=== PATIENT | male | born 1950 | race Caucasian/White ===

== ENCOUNTER 2023-09-14 14:03 | Inpatient (IN) | payer MEDICARE ==
[~2023-09-14] VITALS: Ht 180.3 cm; Wt 84.0 kg
[2023-09-14 15:09] LABS: Alanine Aminotransferase 34 U/L (7-40); Albumin 4.7 g/dL (3.2-4.8); Alkaline Phosphatase 67 U/L (46-116); Anion Gap 4 (5-15); Aspartate Aminotransferase 26 U/L (13-40); BUN/Creatinine Ratio 11.3 (10.0-20.0); Blood Urea Nitrogen 13 mg/dL (9-23); Calcium 9.4 mg/dL (8.7-10.4); Carbon Dioxide 28 mmol/L (20-30); Chloride 105 mmol/L (98-107); Glucose 102 mg/dL (74-106); Lipase 32 U/L (12-53); Potassium 4.8 mmol/L (3.5-5.1); Sodium 137 mmol/L (136-145)
[2023-09-14 15:10] LABS: Bilirubin, Total 1.1 mg/dL (0.2-1.0); Total Protein 7.5 g/dL (5.7-8.2)
[2023-09-14 15:30] LABS: Urine Bacteria FEW /hpf (None Seen); Urine Blood Negative /uL (Negative); Urine Clarity Clear (Clear); Urine Color Yellow (Yellow); Urine Mucus FEW (None Seen); Urine Protein, UAD 1+ (Negative); Urine Specific Gravity 1.019 (1.001-1.035); Urine Urobilinogen Normal (Negative); Urine WBC <1 /hpf (0 - 3); Urine pH 6.5 (5.0-8.0)
[2023-09-14 15:50] LABS: Basophils # (auto) 0.1 10 ^3/uL (0-0.2); Basophils % (auto) 0.4 % (0.0-2.0); Eosinophils # (auto) 0.3 10 ^3/uL (0-0.8); Eosinophils % (auto) 1.8 % (0.0-7.0); Hematocrit 45.6 % (41.0-53.0); Hemoglobin 14.9 g/dL (13.5-17.5); Lymphocytes % (auto) 41.1 % (10.0-50.0); Mean Corpuscular Hgb Conc. 32.8 g/dL (32.0-36.0); Mean Corpuscular Volume 97.5 fL (80.0-100.0); Monocytes # (auto) 1.1 10 ^3/uL (0-1.3); Monocytes % (auto) 7.2 % (0.0-12.0); Neutrophils # (auto) 7.3 10 ^3/uL (1.6-8.6); Neutrophils % (auto) 49.5 % (37.0-80.0); Nucleated Red Blood Cells % 0.4 %; Red Blood Cells 4.68 10^6/uL (4.5-5.90); Red Cell Distribution Width 15.4 % (11.8-14.3); White Blood Cell 14.7 10^3/uL (4.4-10.8)
[2023-09-14] MEDS ORDERED: DOCUSATE SOD 100 MG CAP PO PRN (18:30)
[2023-09-14] MEDS ORDERED: MORPHINE SULFATE INJ 2 MG/ml SYRG IV PRN ×2 (18:30)
[2023-09-14] MEDS ORDERED: NITROGLYCERIN 0.4 MG SL TAB SL PRN (18:30)
[2023-09-14] MEDS ORDERED: ACETAMINOPHEN 325 MG TAB PO PRN (18:30)
[2023-09-14] MEDS ORDERED: ONDANSETRON HCL 4 MG/2 ML VIAL IV PRN (18:30)
[2023-09-14] MEDS ORDERED: HYDROcodone-ACET 5/325MG TAB PO PRN (18:30)
[2023-09-15] VITALS (7 sets, daily range): BP systolic 104–147; BP diastolic 72–98; PULSE 52–72; RESP 17–20; TEMP 97.7–98.1; O2SAT 94–99
[2023-09-15] MEDS ORDERED: SERT25TA84 PO (02:00)
[2023-09-15] MEDS ORDERED: LOSA100T58 PO (02:00)
[2023-09-15] MEDS ORDERED: TRAZ-181 PO (02:00)
[2023-09-15] MEDS ORDERED: TAMS0.4C36 PO (02:00)
[2023-09-15] MEDS ORDERED: METF-372 PO (02:00)
[2023-09-15] MEDS ORDERED: HYDR50TA69 PO (02:00)
[2023-09-15] MEDS: TEMAZEPAM 15 MG CAP PO PRN (02:12)
[2023-09-15 05:38] LABS: Alanine Aminotransferase 29 U/L (7-40); Albumin 4.3 g/dL (3.2-4.8); Alkaline Phosphatase 56 U/L (46-116); Anion Gap 7 (5-15); Aspartate Aminotransferase 24 U/L (13-40); BUN/Creatinine Ratio 8.3 (10.0-20.0); Blood Urea Nitrogen 10 mg/dL (9-23); Calcium 9.5 mg/dL (8.5-10.1); Carbon Dioxide 25 mmol/L (20-30); Chloride 105 mmol/L (98-107); Cholesterol 141 mg/dL (< 200); Glucose 84 mg/dL (74-106); HDL Cholesterol 40 mg/dL (40-59); LDL Cholesterol 94 mg/dL (< 100); Potassium 4.1 mmol/L (3.5-5.1); Sodium 137 mmol/L (136-145); Triglycerides 113 mg/dL (< 150)
[2023-09-15 05:39] LABS: Bilirubin, Total 1.3 mg/dL (0.2-1.0); Total Protein 6.6 g/dL (5.7-8.2)
[2023-09-15 05:42] LABS: Hematocrit 42.5 % (41.0-53.0); Hemoglobin 14.4 g/dL (13.5-17.5); Mean Corpuscular Hemoglobin 32.3 pg (28.0-32.0); Mean Corpuscular Hgb Conc. 33.8 g/dL (32.0-36.0); Mean Corpuscular Volume 95.6 fL (80.0-100.0); Red Blood Cells 4.45 10^6/uL (4.5-5.90); Red Cell Distribution Width 15.5 % (11.8-14.3); White Blood Cell 13.4 10^3/uL (4.4-10.8)
[2023-09-15 05:50] LABS: Basophils % (manual) 0 (0.0-2.0); Blast Cells 0; Metamyelocytes % 0; Myelocytes % 0; Promyelocytes % 0
[2023-09-15] MEDS: ENOXAPARIN SOD 40 MG/0.4 ML SYRINGE SC SCH (05:53)
[2023-09-15 07:57] LABS: Band Neutrophils % (manual) 4; Eosinophils % (manual) 4 (0-7); Lymphocytes % (manual) 33 (10.0-50.0); Monocytes % (manual) 4 (0-12); Platelet Estimate Adequate; Reactive Lymphocytes 7
[2023-09-15 07:58] LABS: RBC Morphology Normal
[2023-09-15 08:22] LABS: Hepatitis B Surface Antigen Negative (Negative)
[2023-09-15 08:43] LABS: Hepatitis C Antibody Negative (Negative)
[2023-09-15] MEDS ORDERED: DEXTROSE (50%) 50ML SYRG IV PRN (11:45)
[2023-09-15] MEDS: SERTRALINE HCL 50 MG TAB PO SCH (13:18)
[2023-09-15] MEDS: InsuLIN REG 1unit/0.01ml Soln (100units/ml) SC SCH (16:48)
[2023-09-15] MEDS: ACCU-CHEK COMFORT CURVE STRIP VI SCH (16:48)
[2023-09-15] MEDS: TAMSULOSIN HYDROCHLORIDE 0.4 MG CAP PO SCH (21:18)
[2023-09-16 05:00] VITALS: BP 139/88; PULSE 60; RESP 19; TEMP 98.1; O2SAT 100
[2023-09-16 08:00] VITALS: PULSE 65; RESP 16; O2SAT 92
[2023-09-16 09:00] VITALS: BP 140/86; PULSE 65; RESP 16; TEMP 97.5; O2SAT 92
[2023-09-16 13:00] VITALS: BP 143/85; PULSE 65; RESP 18; TEMP 97.5; O2SAT 94
[2023-09-16 15:15] VITALS: BP 140/86; PULSE 65; RESP 16; TEMP 97.5; O2SAT 92
[2023-09-17] MEDS ORDERED: INFLUENZA QUAD 2023-2024 0.5 ML SYRG IM ONE (06:15)
== END 2023-09-16 15:46 | disposition home or self-care (01) | DRG 310 ==
LOC: ER 14:03 → TELE 18:38 → TELE-WESTW 18:38
PROVIDERS: ADMIT Nurse Practitioner; ATTEND Nurse Practitioner
DX: I49.5 Sick sinus syndrome (principal); I44.1 Atrioventricular block, second degree; R42 Dizziness and giddiness; D72.820 Lymphocytosis (symptomatic); E11.9 Type 2 diabetes mellitus without complications; I10 Essential (primary) hypertension; Z79.84 Long term (current) use of oral hypoglycemic drugs; Z79.899 Other long term (current) drug therapy; Z87.891 Personal history of nicotine dependence; Z99.81 Dependence on supplemental oxygen
CPT/HCPCS: 36415; 80053; 80061; 81001; 82553; 82962; 83036; 83605; 83690; 83880; 84443; 84484; 85007; 85025; 85027; 86803; 87340; 93005; 93306; G0378

== ENCOUNTER 2024-08-10 16:31 | Emergency (ER) | payer OTHER ==
[~2024-08-10] VITALS: Ht 180.3 cm; Wt 83.6 kg
[~2024-08-10 16:31] MED LIST: HYDR50TA69 PO; LOSA-535 PO; METF-372 PO; SERT25TA84 PO; TAMS0.4C39 PO; TRAZ-181 PO
[2024-08-10] MEDS: SODIUM CHLORIDE 0.9% 2,000 ML IV ONE (17:44)
[2024-08-10] MEDS: THIAMINE 100mg/ml INJ (200mg/2ml VIAL) IV ONE (18:09)
[2024-08-10] MEDS: ONDANSETRON HCL 4 MG/2 ML VIAL IV ONE (18:09)
[2024-08-10 19:47] VITALS: BP 154/105; PULSE 83; RESP 22; TEMP 97.8; O2SAT 95
--- NOTE | 2024-08-10 19:55 | ED.PDOC ---
History of Present Illness HPI Comments This patient is a 74-year-old male who arrives the ED today with a request for assistance with alcohol abuse. Patient is a long-term alcoholic and came to our facility seeking rehab treatment. Patient states intermittent nausea. Vital signs were stable on arrival. Chief Complaint: ETOH Time Seen by MD: 16:51 Reviewed Notes: Nurses Notes Allergies: Coded Allergies: NO KNOWN ALLERGIES (Unverified , 09/15/23) Home Meds Reported Medications Sertraline Hcl (Zoloft) 25 Mg Tab, 25 MG PO DAILY, TAB 09/15/23 Losartan Potassium (Losartan Potassium) 100 Mg Tab, 100 MG PO DAILY, TAB 09/15/23 Tamsulosin Hcl (Tamsulosin Hcl) 0.4 Mg Cap, 0.4 MG PO BID, CAP 09/15/23 Metformin Hydrochloride (Metformin Hcl) 1,000 Mg Tab, 1000 MG PO BID, TAB 09/15/23 Hydroxyzine Hcl (Hydroxyzine Hcl) 50 Mg Tab, 50 MG PO DAILY, TAB 09/15/23 Trazodone HCl (Trazodone Hydrochloride) 50 Mg Tab, 100 MG PO DAILY, TAB 09/15/23 Information Source: Patient Mode of Arrival: Ambulatory Severity: Moderate Timing: Months Duration: Since onset Prehospital treatment: None Past Medical History PAST MEDICAL HISTORY: Denies Surgical History: Denies all surgeries Family History Family History: Reviewed,noncontributory to illness, No family hx of Cancer, No family hx of DM, No family hx of Heart brandin, No family hx of HTN, No family hx ofKidney brandin, No family hx of Liver brandin, No family hx of Lung brandin, No family hx of Stroke Social History Smoker: Non-Smoker Alcohol: Heavy Drugs: Denies Drug Use Lives In: Home Constitutional: denies: chills, diaphoresis, fatigue, fever, malaise, sweats, weakness, others EENTM: denies: blurred vision, double vision, ear bleeding, ear discharge, ear drainage, ear pain, ear ringing, eye pain, eye redness, hearing loss, mouth pain, mouth swelling, nasal discharge, nose bleeding, nose congestion, nose pain, photophobia, tearing, throat pain, throat swelling, voice changes, others Respiratory: denies: cough, hemoptysis, orthopnea, SOB at rest, shortness of breath, SOB with excertion, stridor, wheezing, others Cardiovascular: denies: chest pain, dizzy spells, diaphoresis, Dyspnea on exertion, edema, irregular heart beat, left arm pain, lightheadedness, palpitations, PND, syncope, others Gastrointestinal: denies: abdomen distended, abdominal pain, blood streaked bowels, constipated, diarrhea, dysphagia, difficulty swallowing, hematemesis, melena, nausea, poor appetite, poor fluid intake, rectal bleeding, rectal pain, vomiting, others Genitourinary: denies: burning, dysuria, flank pain, frequency, hematuria, incontinence, penile discharge, penile sore, pain, testicle pain, testicle swelling, urgency, others Neurological: denies: dizziness, fainting, headache, left sided numbness, left sided weakness, numbness, paresthesia, pre-existing deficit, right sided numbness, right sided weakness, seizure, speech problems, tingling, tremors, weakness, others Musculoskeletal: denies: back pain, gout, joint pain, joint swelling, muscle pain, muscle stiffness, neck pain, others Integumetry: denies: bruises, change in color, change in hair/nails, dryness, laceration, lesions, lumps, rash, wounds, others Allergic/Immunocompromised: denies: Difficulty Healing, Frequent Infections, Hives, Itching, others Hematologic/Lymphatic: denies: anemia, blood clots, easy bleeding, easy bruising, swollen glands, others Endocrine: denies: excessive hunger, excessive sweating, excessive thirst, excessive urination, flushing, intolerance to cold, intolerance to heat, une xplained weight gain, unexplained weight loss, others Psychiatric: denies: anxiety, bipolar disorder, depression, hopeless, panic disorder, schizophrenia, sleepless, suicidal, others Unable to Obtain due to: Other (Patient is intoxicated.) Physical Exam General Appearance: Moderate Distress (Patient is moderately intoxicated at time of evaluation.), Normal HEENT: Normal ENT Inspection, Pharynx Normal, TMs Normal Neck: Full Range of Motion, Non-Tender, Normal, Normal Inspection Respiratory: Chest Non-Tender, Lungs Clear, No Accessory Muscle Use, No Respiratory Distress, Normal Breath Sounds Cardiovascular: No Edema, No JVD, No Murmur, No Gallop, Normal Peripheral Pulses, Regular Rate/Rhythm Breast Exam: Deferred Gastrointestinal: No Organomegaly, Non Tender, No Pulsatile Mass, Normal Bowel Sounds, Soft Genitalia: Deferred Pelvic: Deferred Rectal: Deferred Extremities: No calf tenderness, Normal capillary refill, Normal inspection, Normal range of motion, Non-tender, No pedal edema Neurologic: Alert, bailiff II-XII nml as Tested, No Motor Deficits, Normal Affect, Normal Mood, No Sensory Deficits Cerebellar Function: Normal Reflexes: Normal Skin: Dry, Normal Color, Warm Lymphatic: No Adenopathy Was a procedure done? Was a procedure done?: No Differential Dx Considerations may include: Alcohol abuse, alcohol intoxication X-Ray, Labs, Meds, VS Vital Signs Date Time Temp Pulse Resp B/P (MAP) Pulse Ox O2 Delivery O2 Flow Rate FiO2 08/10/24 19:47 97.8 83 22 154/105 (121) 95 97.8 08/10/24 17:02 97.8 52 18 134/87 (103) 96 Current Medications Medications (Trade) Dose Ordered Sig/Delmar Route Start Time Stop Time Status Last Admin Sodium Chloride 2,000 ml @ 1,000 mls/hr Q2H ONCE IV 08/10/24 17:15 08/10/24 19:14 DC 08/10/24 17:44 Ondansetron HCl (Zofran) 4 mg ONCE ONCE IV 08/10/24 17:15 08/10/24 17:16 DC 08/10/24 18:09 Thiamine HCl 100 mg ONCE ONCE IV 08/10/24 17:15 08/10/24 17:16 DC 08/10/24 18:09 X-Ray, Labs, Meds, VS Comment Patient had some relief of symptoms status post medication dispensed to the ED. patient was provided with alcohol cessation information to help him establish some outside support to address his alcoholism. Advised patient to cease alcoh ol use immediately and establish good hydration and healthy nutrition. Time of 1ST Reevaluation: 19:54 Reevaluation 1ST: Improved Consultation: PCP, Other (Alcohol cessation program) Patient Education/Counseling: Diagnosis, Treatment Family Education/Counseling: Diagnosis, Treatment Departure 1 Departure Time of Disposition: 19:54 Impression: Primary Impression: Alcohol intoxication Additional Impression: Alcohol abuse Disposition: HOME / SELF CARE / HOMELESS Condition: Stable Additional Instructions: Advised patient follow up with a alcohol cessation programs such as AA for assistance with his alcoholism concerns. Advised good hydration and healthy nutrition. Discharged With: Self, Friend Critical Care Note Critical Care Time?: No Stability Stability form required: No Heart Score Heart Score: Heart Score Response (Comments) Value History N/A 0 EKG N/A 0 Age N/A 0 Risk Factors N/A 0 Troponin N/A 0 Total 0 ZANDRA FERNANDES PAC Aug 10, 2024 19:55
== END 2024-08-10 20:10 | disposition home or self-care (01) ==
LOC: ER 16:31
DX: F10.129 Alcohol abuse with intoxication, unspecified (principal); R11.0 Nausea
CPT/HCPCS: 96361; 96374; 96375; 99284; J2405; J3411; J7030